=== PATIENT | male | born 1970 | race Hispanic/Latino ===

== ENCOUNTER 2019-01-26 16:52 | Emergency (ER) | payer OTHER ==
[2019-01-26] MEDS ORDERED: ORPHENADRINE CITRATE 30 MG/ML ML ONE (18:03)
== END 2019-01-26 19:13 | disposition home or self-care (01) ==
LOC: EDH 16:52
DX: S39.012A Strain of muscle, fascia and tendon of lower back, initial encounter (principal); Z72.0 Tobacco use; V49.59XA Passenger injured in collision with other motor vehicles in traffic accident, initial encounter; Y93.89 Activity, other specified; Y92.410 Unspecified street and highway as the place of occurrence of the external cause; Y99.8 Other external cause status
CPT/HCPCS: 72040; 72100; 96372; 99284; J2360